=== PATIENT | male | born 1965 | race Caucasian/White ===

== ENCOUNTER 2022-01-12 16:15 | Emergency (ER) | payer BC ==
[~2022-01-12] VITALS: Ht 175.3 cm; Wt 112.0 kg
[2022-01-12 16:41] VITALS: BP 137/72
[2022-01-12 17:00] VITALS: BP 116/70
[2022-01-12 17:30] VITALS: BP 116/80
[2022-01-12 18:00] VITALS: BP 108/68
[2022-01-12 18:30] VITALS: BP 122/83
[2022-01-12] MEDS ORDERED: DOXYCYCLINE100 MG PO (19:21)
== END 2022-01-12 19:44 | disposition home or self-care (01) | DRG 914 ==
LOC: ED 16:15
DX: S91.322A Laceration with foreign body, left foot, initial encounter (principal); L03.116 Cellulitis of left lower limb; G62.9 Polyneuropathy, unspecified; X58.XXXA Exposure to other specified factors, initial encounter; Z88.1 Allergy status to other antibiotic agents